=== PATIENT | male | born 1975 | race Two or more races ===

== ENCOUNTER 2016-10-12 11:10 | Emergency (ER) | payer OTHER ==
[~2016-10-12] VITALS: Ht 180.3 cm; Wt 140.9 kg
[~2016-10-12 11:10] MED LIST: ACET325T9 PO; HYDR12.58 PO; HYDR15SO4 PO; PENI500T PO; lisinopril-hctz
[2016-10-12 11:22] VITALS: BP 167/74
--- NOTE | 2016-10-12 11:52 | RAD ---
Right ankle, 3 views, 10/12/2016: History: Fall, injury There is a small well-defined calcific density at the tip of the medial malleolus which probably represents an accessory ossicle or old fracture fragment. No acute fracture or dislocation is identified. There is moderate soft tissue swelling over the lateral malleolus. A small inferior calcaneal spur is noted. IMPRESSION: No acute bony abnormality is detected.
[2016-10-12] MEDS ORDERED: HYDROcodone/APAP 5/325MG 1 TAB TABLET PO ONE (12:15)
--- NOTE | 2016-10-12 13:30 | ED.ADGEN ---
Past History Past Medical History: Hypertension Past Surgical History: Tonsillectomy Alcohol Use: None Drug Use: None Adult General Chief Complaint Chief Complaint Right ankle injury HPI HPI Patient is a 41-year-old male presents with right ankle injury after twisting right ankle in a pothole proximal 2045 minutes to ED arrival. Patient denies any other injury. Reports pain with weightbearing. No previous ankle injuries. Review of Systems Review of Systems Review symptoms as per history of present illness. All other review symptoms are negative. Current Medications Current Medications Current Medications Medications (Trade) Dose Ordered Sig/Gladys Start Time Stop Time Status Last Admin Dose Admin Acetaminophen/ Hydrocodone Bitart (Lortab 5/325) 1 tab 1X ONCE 10/12/16 12:15 10/12/16 12:16 DC 10/12/16 12:30 1 TAB Allergies Allergies Allergies Coded Allergies Type Severity Reaction Last Updated Verified aspirin Allergy Severe Anaphylaxis 09/15/15 Yes Physical Exam Physical Exam Constitutional: Well developed, well nourished, no acute distress, non-toxic appearance. HENT: Normocephalic, atraumatic, bilateral external ears normal, oropharynx moist, no oral exudates, nose normal. Extremities: Right ankle, no deformity, medial tenderness and swelling. Neurologic: Alert and oriented X 3, no motor weakness of loss of sensation, Psychologic: Affect normal, judgement normal, mood normal. Current Patient Data Vital Signs Vital Signs Date Time Temp Pulse Resp B/P (MAP) Pulse Ox O2 Delivery O2 Flow Rate FiO2 10/12/16 12:30 20 98 Room Air 10/12/16 11:22 97.9 80 EKG EKG [] Radiology/Procedures Radiology/Procedures [R ankle: no deformity] Course & Med Decision Making Course & Med Decision Making Pertinent Labs and Imaging studies reviewed. (See chart for details) [Patient displays instructed not to weight bear until pain resolves. PCP f/u as needed. ] Final Impression Final Impression [1. Right ankle injury] Problems: Dragon Disclaimer Dragon Disclaimer This electronic medical record was generated, in whole or in part, using a voice recognition dictation system. LAWRENCE COVINGTON DO October 12, 2016 13:30
== END 2016-10-12 12:40 | disposition home or self-care (01) ==
LOC: ER 11:10
DX: S99.911A Unspecified injury of right ankle, initial encounter (principal); I10 Essential (primary) hypertension; Z88.6 Allergy status to analgesic agent; X50.9XXA Other and unspecified overexertion or strenuous movements or postures, initial encounter; Y93.89 Activity, other specified; Y99.8 Other external cause status; Y92.89 Other specified places as the place of occurrence of the external cause
CPT/HCPCS: 29515; 73610; 99284-25